=== PATIENT | female | born 1970 | race Caucasian/White ===

== ENCOUNTER 2019-04-23 06:14 | Day surgery (SDC) | payer BC ==
[2019-04-23] MEDS ORDERED: Lactated Ringers 1,000 ML IV SCH (06:30)
[2019-04-23] MEDS ORDERED: DIPRIVAN 200 MG/20 ML IV ONE ×4 (07:10→08:18)
[2019-04-23] MEDS ORDERED: Ketamine HCl 50 MG/ML ONE ×2 (07:10→08:07)
[2019-04-23] MEDS ORDERED: Versed 2 MG/2 ML Injection ONE (07:53)
[2019-04-23] MEDS ORDERED: Lactated Ringers 1,000 ML IV ONE (07:55)
[2019-04-23 09:32] VITALS: BP 150/97
[2019-04-23 09:51] VITALS: PULSE 74; O2SAT 99
--- NOTE | 2019-04-23 11:28 | OP ---
SURGERY DATE/TIME: 04/23/2019 0744 PREOPERATIVE DIAGNOSIS: Screening exam, father with colon cancer. POSTOPERATIVE DIAGNOSIS: Normal colon. PROCEDURE: Colonoscopy. SURGEON: Dr. Barker. ANESTHESIA: MAC. Medications given by anesthesia department. HISTORY: The patient is a 48 year-old white female presenting now for endoscopic evaluation. She reports her father had colon cancer on two separate occasions. The patient is felt the need to have endoscopic evaluation. She was appraised of the risks of the procedure including the risk of perforation, phlebitis, untoward reaction to medication, bleeding and missed lesions. The patient verbalized her understanding and desired to have the procedure performed. DESCRIPTION OF PROCEDURE: The patient was given the medications by the anesthesia department. She had continuous pulse oximetry, ECG monitoring, intermittent blood pressure monitoring and tidal CO2 monitoring during the examination. She was placed in the left lateral decubitus position. A digital rectal examination was performed and revealed normal anal sphincter tone and no masses. The flexible Olympus pediatric colonoscope was used to intubate the rectum. A view of the colon was developed sequentially to the cecum. Upon insertion and withdrawal, including a retroflex view in the rectum, no mucosal lesions were encountered. The scope was removed from the patient who tolerated the procedure well and was sent back to OP recovery in good condition. The prep was noted to be fair to poor.
== END 2019-04-23 09:45 | disposition home or self-care (01) ==
LOC: SDC 06:14
PROVIDERS: ATTEND Family Medicine
DX: Z12.11 Encounter for screening for malignant neoplasm of colon (principal); Z80.0 Family history of malignant neoplasm of digestive organs
CPT/HCPCS: J2250; J2704

== ENCOUNTER 2021-03-20 06:08 | Day surgery (SDC) | payer BC ==
[2021-03-20] MEDS ORDERED: Lactated Ringers 1,000 ML IV SCH (06:30)
[2021-03-20] MEDS ORDERED: DIPRIVAN 200 MG/20 ML IV ONE ×2 (07:42→07:55)
--- NOTE | 2021-03-20 08:17 | OP ---
POLO DATE/TIME: 03/20/2021 0749 PREOPERATIVE DIAGNOSIS: Screening exam, family history of colon cancer. POSTOPERATIVE DIAGNOSIS: Normal colon. PROCEDURE: Colonoscopy. SURGEON: Dr. Barker. ANESTHESIA: MAC. Medications given by anesthesia department. HISTORY: The patient is a 50 year-old white female presenting now for screening colonoscopy. She reports that there is a family history of colon cancer. The patient was described the risks of the procedure including the risk of perforation, phlebitis, untoward reaction to medication, bleeding and missed lesions. The patient verbalized her understanding and desired to have the procedure performed. DESCRIPTION OF PROCEDURE: The patient was given the medications by the anesthesia department. She had continuous pulse oximetry, ECG monitoring, intermittent blood pressure monitoring and tidal CO2 monitoring during the examination. She was placed in the left lateral decubitus position. A digital rectal examination was performed and revealed normal anal sphincter tone and no masses. The flexible Olympus pediatric colonoscope was used to intubate the rectum. A view of the colon was developed sequentially to the cecum. Upon insertion and withdrawal, including a retroflex view in the rectum, no mucosal lesions were encountered. The scope was removed from the patient who tolerated the procedure well and was sent back to OP recovery in good condition. The prep was noted to be good.
[2021-03-20 08:48] VITALS: PULSE 74; O2SAT 98
[2021-03-20 08:59] VITALS: BP 142/74
== END 2021-03-20 09:00 | disposition home or self-care (01) ==
LOC: SDC 06:08
PROVIDERS: ATTEND Family Medicine
DX: Z12.11 Encounter for screening for malignant neoplasm of colon (principal); Z80.0 Family history of malignant neoplasm of digestive organs
CPT/HCPCS: J2704